=== PATIENT | female | born 1945 ===

== ENCOUNTER 2016-10-05 16:30 | Outpatient (CLI) | payer MEDICARE, OTHER ==
[~2016-10-05] VITALS: Ht 152.4 cm; Wt 68.2 kg
--- NOTE | ~2016-10-05 | HEMODYNAMI ---
PATIENT:KURT RUSS MEDICAL RECORD: [id number] : 45 [facility] [id number] ADMISSION DATE: 10/05/16 Generatedon:10/06/20169:35 Patient name: KURT RUSS Patient #: [id number] : 1945 Date of study: 10/06/2016 Page: Of Hemodynamic Procedure Report Patient Data Patient Demographics Procedure consent was obtained First Name: KURT Gender: Female Last Name: PETRONA : 1945 [facility] Initial: L Age: 71 year(s) Patient #: [id number] Race: SSN: [id number] Additional ID: [id number] Contact details Address: [address] [place] [address] [address] State: [place] City: [place] Zip code: [address] Admission Admission Data Admission Date: 10/05/2016 Admission Time: 16:49 Arrival Date: 10/05/2016 Arrival Time: 16:49 Admit Source: Other Insurance Payor: Medicare Room #: D.2116 Weight (lbs.): 149.92 Weight (kg.): 68 Lab Results Lab Result Date: 10/06/2016 Lab Result Time: 0:00 Biochemistry Name Units Result Min Max BUN mg/dl 24 --(----)-* 7 18 Creatinine mg/dl 0.8 --(-*--)-- 0.6 1.3 CBC Name Units Result Min Max Hemoglobin g/dl 14.3 --(*---)-- 13.5 17.5 Procedure Procedure Types Cath Procedure Diagnostic Procedure [facility] w/Coronaries PCI Procedure Coronary Stent Initial Miscellaneous Procedures Moderate Sedation up to 30 minutes Procedure Description Procedure Date Procedure Date: 10/06/2016 Procedure Start Time: 9:09 Procedure End Time: 9:28 Procedure Staff Name Function Jaxson Madsen MD Performing Physician Johnathan Preciado RT Scrub Dov Braswell RN Nurse Ana Smallwood RT Monitor Indication Angina Procedure Data Cath Procedure Fluoroscopy Diagnostic fluoroscopy Total fluoroscopy Time: 5.7 time: 5.7 min min Diagnostic fluoroscopy Total fluoroscopy dose: 684 dose: 684 mGy mGy Contrast Material Contrast Material Type Amount (ml) Isovue 370 113 Entry Location Entry Primary Successful Side Size Upsize Upsize Entry Closure High ccessful Closure Location (Fr) 1 (Fr) 2 (Fr) Remarks Device Remarks Radial Right 6 Fr Mechanical artery Short Compression Femoral Right 6 Fr Exoseal artery Short Estimated blood loss: 5 ml Diagnostic catheters Device Type Used For End Catheter Placement Terumo 5Fr Homer 110cm Multi-vessel catheter Angiography Procedure Complications No complications Procedure Medications Medication Administration Route Dosage Oxygen NC 2 l/min Lidocaine 2% added to field 20 Heparin Flush Bag added to field 2 bags (1000units/500ml NS) 0.9% NaCl I.V. 100 ml/hr Versed I.V. 0.5 mg Fentanyl I.V. 25 mcg Versed I.V. 0.5 mg Fentanyl I.V. 25 mcg Radial Cocktail I.A. 1 syringe (Verapomil 2mg/Nitro 400mcg/Heparin 1500units) Versed I.V. 0.5 mg Fentanyl I.V. 25 mcg Heparin Bolus I.V. 4000 units Integrilin (Bolus I.V. 6.2 ml 2mg/ml) Versed I.V. 0.5 mg Fentanyl I.V. 25 mcg Plavix P.O. 75 mg Hemodynamics Rest HGB: 14.3 (g/dl) Heart Rate: 67 (bpm) Pressure Samples Time Site Value (mmHg) Purpose Heart Use Rate(bpm) 9:11 LV 33/2,9 Snapshot 70 Snapshots Pre Cath Intra NCS Post Cath Vital Signs Time Heart Resp SPO2 etCO2 DD5rixl NIBP (mmHg) Rhythm Pain Sedation Rate (ipm) (%) (mmHg) (mmHg) Status Level (bpm) 9:01:20 66 19 94 0 0 143/74(128) NSR 0 (11) 10(A) , No pain 9:05:34 66 18 95 0 0 132/65(99) NSR 0 (11) 10(A) , No pain 9:09:44 65 18 97 0 0 130/66(102) NSR 0 (11) 10(A) , No pain 9:13:54 69 16 98 0 0 122/60(89) NSR 0 (11) 9(A) , No pain 9:18:01 70 17 97 0 0 116/60(80) NSR 0 (11) 9(A) , No pain 9:23:07 69 19 96 0 0 137/60(112) NSR 0 (11) 9(A) , No pain 9:27:18 71 19 98 0 0 125/64(100) NSR 0 (11) 9(A) , No pain 9:33:15 72 17 97 0 0 143/71(123) NSR 0 (11) 10(A) , No pain Medications Time Medication Route Dose Verified Delivered Reason Notes Effectiveness by by 9:02:02 Oxygen NC 2 l/min Jaxson Buffie used for Cale Braswell RN procedure 9:02:09 Lidocaine 2% added 20ml Jaxson Jaxson for local to vial Cale Madsen MD anesthetic field 9:02:17 Heparin Flush added 2 bags Jaxson Puri used for Bag to Cale Madsen MD procedure (1000units/500ml field NS) 9:02:30 0.9% NaCl I.V. 100 Jaxson Buffie Per physician ml/hr Cale Braswell RN 9:09:54 Fentanyl I.V. 25 mcg Jaxson Manzanaresie for sedation Cale Braswell RN 9:09:57 Versed I.V. 0.5 mg Jaxson Buffie for sedation Cale Braswell RN 9:10:17 Radial Cocktail I.A. 1 Jaxson Jaxson for (Verapomil syringe Cale Madsen MD vasodilation 2mg/Nitro 400mcg/Heparin 1500units) 9:13:06 Versed I.V. 0.5 mg Jaxson Buffie for sedation Cale Braswell RN 9:13:09 Fentanyl I.V. 25 mcg Jaxson Buffie for sedation Cale Braswell RN 9:16:37 Versed I.V. 0.5 mg Jaxson Buffie for sedation Cale Braswell RN 9:16:41 Fentanyl I.V. 25 mcg Jaxson Buffie for sedation Cale Braswell RN 9:20:41 Heparin Bolus I.V. 4000 Jaxson Manzanaresie for verif ied units Cale Braswell RN anticoagulation with dr madsen 9:22:23 Integrilin I.V. 6.2 ml Jaxson Monae for waste d (Bolus 2mg/ml) Cale Braswell RN antiplatelet 3.8 ml therapy from vial 9:25:35 Versed I.V. 0.5 mg Jaxson Monae for sedation Cale Braswell RN 9:25:39 Fentanyl I.V. 25 mcg Jaxson Monae for sedation Cale Braswell RN 9:32:27 Plavix P.O. 75 mg Jaxson Monae for Cale Braswell RN antiplatelet therapy Procedure Log Time Note 8:35:03 Informed consent obtained and on chart 8:36:20 Diagnostic Cath Status : Elective 8:36:39 Indication : Angina 8:36:42 Johnathan Preciado RT(R) sent for patient. Start room use. 8:36:43 Time tracking: Regular hours 8:36:48 Plan of Care:Hemodynamics will remain stable., Cardiac rhythm will remain stable., Comfort level will be maintained., Respiratory function will remain adequate., Patient/ family verbilizes understanding of procedure., Procedure tolerated without complication., Recovers from procedure without complications.. 8:43:03 Admit Source: Other 8:43:11 Arrival Date: 10/05/2016 4:49:00 PM 8:43:17 Insurance Payor : Medicare 8:45:44 Patient received from PCU to CCL 1 Alert and oriented. Tansferred to table in Supine position. 8:45:45 Warm blankets applied, and kizzy hugger turned on for patient comfort. 8:45:48 Correct patient and procedure confirmed by team. 8:45:48 ECG and BP/O2 sat monitors applied to patient. 9:00:10 Vital chart was started 9:00:11 Baseline sample Acquired. 9:00:14 Rhythm: sinus rhythm 9:00:16 Full Disclosure recording started 9:00:20 H&P Date Dictated: 10/06/2016 New H&P dictated by physician.. 9:00:21 Pre-procedure instructions explained to patient. 9:00:22 Pre-op teaching completed and patient verbalized understanding. 9:00:23 Family in waiting room. 9:00:25 Patient NPO since Midnight. 9:00:31 Is the patient allergic to Iodine/contrast media? No. 9:00:33 Was the patient premedicated? No 9:00:35 Is patient on blood thinner?Yes 9:00:38 ACC The patient was administered the following blood thiners within the last 24 hours: ACCPlavix 9:00:40 Patient diabetic? No. 9:00:43 Previous problem with sedation/anesthesia? No ? 9:00:45 Snore? Yes 9:00:46 Sleep apnea? No 9:00:48 Deviated septum? No 9:00:50 Opens mouth fully? Yes 9:00:51 Sticks out tongue? Yes 9:00:53 Airway obstruction? No ? 9:01:02 Dentures? Yes Partials; in tight 9::07 Pre procedure: right dorsailis pedis pulse 1+ Palpable, but thready & weak; easily obliterated 9:01:09 Patient pain scale 0/10 ?. 9:01:16 IV patent on arrival in left antecubital with 0.9% NaCl at [facility]. 9::41 Lab Result : Creatinine 0.8 mg/dl 9::41 Lab Result : BUN 24 mg/dl 9::41 Lab Result : Hemoglobin 14.3 g/dl 9::46 Lab results completed and on chart. 9:01:54 Right Radial & Right Groin area was prepped with chlora-prep and draped in sterile fashion 9::55 Alarms reviewed by R. N. 9::55 Sharps counted by scrub and verified by R.N. 9:01:57 Physician paged 9:02:02 Oxygen 2 l/min NC was administered by Dov Braswell RN; used for procedure; 9:02:09 Lidocaine 2% 20ml vial added to field was administered by Jaxson Madsen MD; for local anesthetic; 9:02:17 Heparin Flush Bag (1000units/500ml NS) 2 bags added to field was administered by Jaxson Madsen MD; used for procedure; 9:02:30 0.9% NaCl 100 ml/hr I.V. was administered by Dov Braswell RN; Per physician; 9:08:32 Physician arrived 9:08:32 --------ALL STOP TIME OUT------ 9:08:33 Final Timeout: patient, procedure, and site verified with staff and physician. All members of the team are in agreement. 9:08:35 Right Radial & Right Groin site verified by team. 9:08:38 Physical assessment completed. ASA score P 2 - A patient with mild systemic disease as per Jaxson Madsen MD. 9:08:42 Sedation plan: IV Moderate Sedation Versed, Fentanyl 9::01 Procedure started. 9:09:06 Local anesthetic to right radial artery with Lidocaine 2% by Jaxson Madsen MD.INITIAL ACCESS ONLY 9::16 A 6 Fr Short sheath was inserted into the Right Radial artery 9::54 Fentanyl 25 mcg I.V. was administered by Dov Braswell RN; for sedation; 9::57 Versed 0.5 mg I.V. was administered by Dov Braswell RN; for sedation; 9:10:17 Radial Cocktail (Verapomil 2mg/Nitro 400mcg/Heparin 1500units) 1 syringe I.A. was administered by Jaxson Madsen MD; for vasodilation; 9:10:41 A Terumo 5Fr Homer 110cm catheter was advanced over the wire and used for Multi-vessel Angiography. 9:12:00 LV hemodynamics recorded. 9:12:01 LV gram done using ORTEGA 9:12:04 Injector settings: Ml/sec: 5, Volume: 15, 9:12:11 EF : 60 % 9:12:45 Catheter removed. 9:13:05 Cordis 6FR XBLAD 3.5 guide catheter opened to sterile field. 9:13:06 Versed 0.5 mg I.V. was administered by Dov Braswell RN; for sedation; 9:13:09 Fentanyl 25 mcg I.V. was administered by Dov Braswell RN; for sedation; 9:13:40 6 Fr xblad 3.5 guide catheter was inserted over the wire 9:15:46 Guide Catheter removed. unable to cannulate vessel. 9:16:18 Cannot cannulate vessels, attempting femoral access 9:16:37 Versed 0.5 mg I.V. was administered by Dov Braswell RN; for sedation; 9:16:41 Fentanyl 25 mcg I.V. was administered by Dov Braswell RN; for sedation; 9:16:46 Terumo 6Fr Patrick Sheath opened to sterile field. 9:16:54 Local anesthetic to right femoral artery with Lidocaine 2% by Jaxson Madsen MD.ADDITIONAL ACCESS 9:17:09 A 6 Fr Short sheath was inserted into the Right Femoral artery 9:17:47 6 Fr xblad 3.5 guide catheter was inserted over the wire 9:18:13 LCA angiography performed. 9:18:16 Injector settings: Ml/sec: 3, Volume: 6, 9:19:26 Hilton Whisper J 300cm 0.014 guide wire opened to sterile field. 9:19:27 Hilton Whisper J 300cm 0.014 guide wire opened to sterile field. 9:20:25 Merit BasixCompak Inflation Kit opened to sterile field. 9:20:33 Proceeding to intervention. 9:20:41 Heparin Bolus 4000 units I.V. was administered by Dov Braswell RN; for anticoagulation; verified with dr madsen 9:21:12 whisper wire directed down LAD 9:22:23 Integrilin (Bolus 2mg/ml) 6.2 ml I.V. was administered by Dov Braswell RN; for antiplatelet therapy; wasted 3.8 ml from vial 9:24:36 second whisper wire directed down Lcx 9::41 Inflation Number: 1 A Valmarctronic Resolute 3.5 X 18 stent was prepped and advanced across the Prox CX. The stent was deployed at 15 SHILPI for 0:10 (min:sec). 9:25:33 Stent catheter was removed intact over wire. 9::34 Wire removed. 9:25:35 Versed 0.5 mg I.V. was administered by Dov Braswell RN; for sedation; 9:25:35 Guide catheter removed. 9:25:39 Fentanyl 25 mcg I.V. was administered by Dov Braswell RN; for sedation; 9:25:42 Cordis 6Fr Exoseal opened to sterile field. 9::39 Sheath removed intact; hemostasis achieved with Exoseal to the Right Femoral artery. 9:26:54 Procedure ended.(Physican Out) 9:27:05 Fluoroscopy time 05.70 minutes. 9::12 Fluoroscopy dose: 684 mGy 9:27:12 Flurop Dose total: 684 9:27:16 Contrast amount:Isovue 370 113ml. 9:27:19 Sharps counted by scrub and verified by R.N. 9:27:35 Terumo TR Band Standard opened to sterile field. 9::47 Sheath removed intact; hemostasis achieved with Mechanical Compression to the Right Radial artery. 9:27:51 TR band inflated with 10cc of air. 9:27:53 Insertion/operative site no bleeding no hematoma. 9:27:56 Post-op/insertion site Right Femoral artery dressed using a 4 x 4 and Tegaderm. 9:28:02 Post right radial artery:stable 9:28:03 Post Procedure Pulses reassessed and unchanged 9:28:06 Post procedure rhythm: unchanged. 9:28:09 Estimated blood loss: 5 ml 9:28:11 Post procedure instruction explained to patient.Patient verbalizes understanding. 9:28:12 Patient needs reinforcement of post procedure teaching. 9:28:30 Procedure type changed to Cath procedure, Diagnostic procedure, LHC, LHC w/Coronaries, PCI procedure, Coronary Stent Initial, Miscellaneous Procedures, Moderate Sedation up to 30 minutes 9:28:30 Procedure and supply charges have been captured, reviewed, submitted and are correct. 9:28:35 Procedure Complication : No complications 9:28:37 Vital chart was stopped 9:28:37 See physician's report for complete and final results. 9:28:44 Report given to PCU. 9:28:47 Patient transfered to PCU with Stretcher. 9:28:48 Procedure ended. 9:28:48 Full Disclosure recording stopped 9:28:54 ACC-PCI Only Patient was given prescriptions, or instructed by Jaxson Madsen MD to start/continue the following medications upon discharge: Plavix 9:28:57 End room use (Document Last) 9:32:05 Use device set Radial Dx 9:32:07 Acist Syringe opened to sterile field. 9:32:07 Medline Cath Pack opened to sterile field. 9:32:08 Bag Decanter opened to sterile field. 9:32:10 Terumo 6Fr Slender Glidesheath opened to sterile field. 9:32:10 St Cyrus 260cm J .035 wire opened to sterile field. 9:32:11 Acist Hand Control opened to sterile field. 9:32:12 Acist Manifold opened to sterile field. 9:32:12 Tegaderm 4 x 4 opened to sterile field. 9:32:13 MBrace Wrist Support opened to sterile field. 9:32:27 Plavix 75 mg P.O. was administered by Dov Braswell RN; for antiplatelet therapy; 9:34:32 Patient Weight : 149.92 kg Intervention Summary Intervention Notes Time ActionType Lesion and Equipment Action# Pressure Duration Attributes Used 9:24:41 Place stent Prox CX Medtronic 1 15 00:10 Resolute 3.5 X 18 stent Device Usage Item Name Manufacture Quantity Catalog Hospital Part Current Minimal Lot# / Number Charge Number Stock Stock Serial# Code Terumo 5Fr Terumo 1 [id number] [id number] 454684 722309 5 Homer 110cm catheter Cordis 6FR Cardinal 1 [id number] 726020 134154 140583 10 XBLAD 3.5 Health guide catheter Terumo 6Fr Terumo 1 [id number] 383619 736544 064127 40 Patrick Sheath Hilton Hilton 2 [id number] 495264 744764 278719 5 Whisper J Vascular 300cm 0.014 guide wire Merit Merit 1 [id number] 364653 004516 482545 15 BasixCompak Medical Inflation Kit Medtronic Medtronic 1 [id number] 207645 473954 8 [id number] Resolute 3.5 X 18 stent Cordis 6Fr Cardinal 1 EX600 224451 382271 959984 10 [employer]eal Health Terumo TR Terumo 1 [id number] 526858 737895 977377 40 Band Standard Acist Acist 1 89945 217101 097510 664107 20 Syringe Medical Systems Inc Medline Cardinal 1 [id number] 583728 34212 271289 5 Cath Pack Health Bag Microtek 1 2002S 298894 73832 852179 5 DecBlooie Medical Inc. Terumo 6Fr Terumo 1 [id number] 406420 291386 205282 [address] Cyrus 1 415258 793210 127311 526125 30 260cm J .035 wire Acist Hand Acist 1 41755 957882 483324 011282 5 Control Medical Systems Inc Acist Acist 1 19427 854163 534538 753321 5 Manifold Medical Systems Inc Tegaderm 4 3M 1 1626W 851338 912840 788218 5 x 4 MBrace Advanced 1 140-0250-00 226788 90270 013964 5 Wrist Vascular Support Dynamics Signature Audit [place] Stage Time Signature Unsigned Intra-Procedure 10/06/2016 Ana Smallwood 9:35:49 AM RT(R) Signatures Monitor : Ana Smallwood RT Signature : Date : Time : [place] [id number] [facility] [place] [address]
--- NOTE | 2016-10-05 16:30 | NUR ---
RECEIVED PT VIA AMBULANCE FROM [facility] IN STABLE CONDITION AAOX4 RESP UNLABORED ON ROOM AIR SKIN W/D COLOR WNL SALINE LOCKS INTACT TO RT WRIST 18 GA AND LAC 20 GA NO REDNESS OR EDEMA NOTED AT SITE PT DENIES ANY PAIN OR NEED
[2016-10-05 17:22] VITALS: BP 186/76; Ht 152.4 cm; Wt 68.2 kg
[2016-10-05] MEDS ORDERED: CRESTOR10 MG PO (19:01)
[2016-10-05] MEDS ORDERED: MOBIC7.5 MG PO (19:02)
[2016-10-05 20:21] VITALS: BP 148/94
[2016-10-05 21:49] LABS: BASOPHILS 0.1 % (0.0-2.0); EOSINOPHILS 1.2 % (0-7); HEMATOCRIT 43.6 % (36.0-48.0); HEMOGLOBIN 14.3 g/dL (12-16); IMMATURE GRANULOCYTES 0.1 % (0-5); LYMPHOCYTES 21.8 % (15-50); MCH 27.7 pg (26.0-34.0); MCHC 32.8 g/dL (31.0-37.0); MCV 84.5 fL (80.0-100.0); MEAN PLATELET VOLUME 10.7 fL (7.4-10.4); MONOCYTES 8.6 % (2-11); NEUTROPHILS 68.2 % (40-80); PLATELET COUNT 299 10x3/uL (130-400); RBC 5.16 10x6/uL (4.00-5.40); RDW 14.4 % (11.5-14.5); WBC 7.5 10x3/uL (4.8-10.8)
[2016-10-05 21:56] LABS: CALC OSMOLALITY 283 mosm/kg (275-300); CALCIUM 9.6 mg/dL (8.5-10.1); CARBON DIOXIDE 30.7 mmol/L (21.0-32.0); CHLORIDE - SERUM 104 mmol/L (98-107); CREATININE - SERUM 0.8 mg/dL (0.6-1.3); GLUCOSE 117 mg/dL (74-106); POTASSIUM - SERUM 3.5 mmol/L (3.5-5.1); SODIUM 140 mmol/L (136-145); UREA NITROGEN 24 mg/dL (7-18); eGFR NON AFRICAN AMERICAN 75 mL/min (90-120)
[2016-10-06 00:31] VITALS: BP 121/53
[2016-10-06 04:03] VITALS: BP 131/63
[2016-10-06 08:08] VITALS: BP 129/57
--- NOTE | 2016-10-06 08:50 | NUR ---
PRE-OPS GIVEN. TO MEDICAL SAFETY DIRECTOR BY BED.
--- NOTE | 2016-10-06 10:07 | NUR ---
BACK FROM RAILROAD WATCHMAN. VS WNL. RIGHT GROIN STABLE WITHOUT BLEEDING OR HEMATOMA NOTED. TR BAND TO RIGHT WRIST. CARIDAD ORNELAS.
[2016-10-06 11:57] VITALS: BP 138/68
[2016-10-06] MEDS ORDERED: PLAVIX75 MG PO (12:36)
[2016-10-06] MEDS ORDERED: BAYER CHEWABLE81 MG PO (12:38)
--- NOTE | 2016-10-06 13:45 | NUR ---
TR BAND DCD WITHOUT BLEEDING OR HEMATOMA NOTED. BR UP GROIN STABLE. WILL CONT. PLAN IF CARE.
--- NOTE | 2016-10-06 16:54 | NUR ---
IV AND TELEMETRY DCD. DC PLANS GIVEN. UNDERSTANDING VOICED. LEAVING HOP WITH BOYFRIEND. ESCORTED TO CAR BY W/C.
--- NOTE | 2016-10-19 10:19 | HP ---
PATIENT: KURT RUSS MEDICAL RECORD: [id number] ACCOUNT: [id number] LOCATION:TIM : 45 ADMISSION DATE: 10/05/16 HISTORY AND PHYSICAL EXAMINATION DIAGNOSES: 1. Non-Q-wave myocardial infarction. 2. Coronary artery disease. 3. Hyperlipidemia. HISTORY OF PRESENT ILLNESS: Mrs. Russ presented to [facility] with chest discomfort. She has no previous cardiac history. Her EKG is with no acute ST-T abnormalities; however, troponin is positive. She continues to have episodes of chest discomfort. PHYSICAL EXAMINATION: GENERAL APPEARANCE: Well-nourished, well-developed, appears stated age. Level of distress, comfortable. PSYCHIATRIC: Mental status, alert, normal affect. Orientation, oriented to time, place and person. EYES: Lids and conjunctiva, noninjected. No discharge, no pallor. ENT: Lips, teeth, gums, normal dentition. Oropharynx, no cyanosis, no pallor. NECK: Carotid arteries, bilateral normal upstroke, no bruits, no thrills. JUGULAR VEINS: No jugular venous pressure or distention. CERVICAL LYMPH NODES: Nontender, nonenlarged. THYROID: Not enlarged. Nontender. No nodules. LUNGS: Respiratory effort, unlabored. CHEST: Normal curvature. No thoracic deformity. No chest wall tenderness. Percussion, resonant. Auscultation, clear. No wheezes, no rales, no rhonchi. CARDIOVASCULAR: Precordial exam, nondisplaced. No heaves or pericardial thrills. Rate and rhythm, regular. Heart sounds, normal S1, normal S2. No S3, no gallop, no rub. Systolic murmur, not heard. Diastolic murmur, not heard. EXTREMITIES: No cyanosis, no edema. Peripheral pulses, full and equal in all extremities, except as noted. No bruits appreciated. ABDOMEN: Soft, nondistended. Normal aorta. No bruit. Nontender. No masses. Liver, nontender, no hepatomegaly. Spleen, nontender, no splenomegaly. MUSCULOSKELETAL: No joint tenderness. No joint swelling. No erythema. NEUROLOGICAL: Normal gait, normal strength, normal tone. SKIN: Warm and dry. HISTORY AND PHYSICAL [id number] KURT RUSS REVIEW OF SYSTEMS: The patient reports easy bruising but reports no swollen glands. The patient reports no fever, no night sweats, no significant weight gain, no significant weight loss. No significant exercise tolerance. The patient reports no dry eyes, no irritation, no vision change. Patient reports no difficulty hearing and no ear pain. Patient reports no frequent nose bleeds or nose and sinus problems. Patient reports on arm pain on exertion. No shortness of breath while lying down. No history of heart murmur. Patient reports no cough, no wheezing or coughing up blood. Patient reports no abdominal pain, no vomiting. Normal appetite. No diarrhea and not vomiting blood. No nausea and no constipation. Patient reports no incontinence. No difficulty urinating. No hematuria. No increased frequency. Patient reports no muscle aches. No weakness, no arthralgias, no back pain. No swelling of the extremities. Patient reports no abnormal mole, no jaundice, no rashes. Reports no loss of consciousness. No weakness and no numbness. No seizures, dizziness, or headaches. The patient reports no depression, no sleep disturbance, feeling safe in a relationship and no alcohol abuse. Patient reports on fatigue. Reports no runny nose or sinus pressure. No itching, no hives, and no frequent sneezing. OVERALL IMPRESSION: Non-Q-wave myocardial infarction with continued anginal pain. We will proceed with coronary angiography. Further care depends upon findings of the angiography. TRANSINT:[id number] Voice Confirmation ID: [id number] DOCUMENT ID: [id number] MARILYN CHAUDHRY MD at 1019 CC: [id number] DICTATION DATE: 10/06/16 0839 INORGANIC CHEMISTRY PROFESSOR: 10/06/16 0854 [facility] CLI 10/06/16 [place] [id number]
--- NOTE | 2016-10-19 10:19 | OP ---
PATIENT NAME: KURT RUSS MEDICAL RECORD: [id number] :45 LOCATION:D.CAT ADMISSION DATE: SURGEON: MARILYN CHAUDHRY MD DATE OF OPERATION: 10/06/2016 PROCEDURES: 1. PTCA stent left circumflex. 2. Left heart catheterization. 3. Selective coronary angiography. 4. Left ventriculogram. INDICATION: Non-Q-wave myocardial infarction. DESCRIPTION OF PROCEDURE: After informed consent was obtained and after a detailed explanation of the risks, benefits as well as alternative therapies, the patient elected to proceed with angiogram and angioplasty. The right femoral area was prepped and draped in normal sterile fashion. The right femoral artery was cannulated via modified Seldinger technique with placement of 6-Omani sheath. All catheters exchanged through this sheath. FINDINGS: The left ventriculogram was performed in standard 30-degree ORTEGA view, reveals good cardiac wall motion throughout all segments. Overall ejection fraction is 60%. SELECTIVE CORONARY ANGIOGRAPHY: 1. Left main showed no significant angiographic disease. 2. Left anterior descending has mild irregularities, but no flow-limiting stenosis. 3. The left circumflex has an 80% stenosis with what appears to be thrombus in the proximal vessel. 4. The right coronary artery has ____ irregularities, but no flow-limiting stenosis throughout. PERCUTANEOUS TRANSLUMINAL CORONARY ANGIOPLASTY STENT OF THE LEFT CIRCUMFLEX: The stent used was a 3.5 x 18 mm Resolute, taken to 15 atmospheres. Result was 0% residual stenosis. OVERALL IMPRESSION: Successful percutaneous transluminal coronary angioplasty stent of the left circumflex going from 80% stenosis with thrombus to 0% residual. TRANSINT:[id number] Voice Confirmation ID: [id number] DOCUMENT ID: [id number] MARILYN CHAUDHRY MD at 1019 CC: [id number] DICTATION DATE: 10/06/1630 TANK TRUCK MILK RECEIVER: 10/06/16 0942 [facility] CLI 10/06/[address] [address]
--- NOTE | 2016-10-19 10:19 | DS ---
PATIENT:KURT RUSS :45 MEDICAL RECORD: [id number] DISCHARGE SUMMARY ADMISSION DATE: 10/05/16 DISCHARGE DATE: 10/06/16 DATE OF SERVICE: 10/06/2016 DIAGNOSES: 1. Non-Q-wave myocardial infarction. 2. Coronary artery disease. 3. Percutaneous transluminal coronary angioplasty stent of left circumflex this admission. 4. Hyperlipidemia. HOSPITAL COURSE: Mrs. Russ presents with chest pain, found to have a non-Q-wave myocardial infarction, underwent cardiac catheterization revealing critical disease of the left circumflex, underwent successful PTCA stent of the left circumflex. She was discharged home with the addition of aspirin and Plavix to her medical regimen. Beta ulises was not undertaken secondary to bradycardia. She will follow up with [facility] in 1 month. TRANSINT:[id number] Voice Confirmation ID: [id number] DOCUMENT ID: [id number] MARILYN CHAUDHRY MD at 1019 CC: [id number] DICTATION DATE: 10/06/16928 CHEMIST INTERN: 10/06/16 0946 [facility] CLI 10/06/[address] [address]
== END 2016-10-06 16:55 | disposition home or self-care (01) ==
LOC: OBSVTIME → D.CATH 16:30 → D.M2 16:30 → UNDOADMOB 16:49 → D.M2 16:49 → OBSVTIME 16:50 → D.M2 10-06 09:31 → D.CATH 10-06 16:55 → D.M2 10-06 16:55 → EDSTATUS 10-09 10:53
PROVIDERS: Internal Medicine Interventional Cardiology
DX: I21.4 Non-ST elevation (NSTEMI) myocardial infarction (principal); I25.10 Atherosclerotic heart disease of native coronary artery without angina pectoris; E78.5 Hyperlipidemia, unspecified
CPT/HCPCS: 93458; C9600